=== PATIENT | female | born 1985 | race Caucasian/White ===

== ENCOUNTER 2016-07-12 21:10 | Emergency (ER) | payer OTHER ==
[~2016-07-12] VITALS: Ht 172.7 cm; Wt 83.4 kg
[2016-07-12 21:39] LABS: HEMATOCRIT 40.7 % (36.0-46.0); MCH 28.7 PG (29.0-34.0); MCHC 33.7 G/DL (30.0-36.0); MCV 85.1 FL (83-99); MEAN PLAT.VOLUME 10.4 uM^3 (9.5-12.4); PLATELET COUNT 285 K/uL (156-360); RBC DIS.WIDTH-CV 13.4 % (11.8-14.6); RBC DIS.WIDTH-SD 41.1 % (39-53); RED BLOOD COUNT 4.78 M/uL (3.80-5.20); WHITE BLOOD COUNT 16.6 K/uL (4.1-10.2)
[2016-07-12 21:58] LABS: CHLORIDE 106 mEq/L (99-109); POTASSIUM 3.7 mEq/L (3.7-5.4); SODIUM 138 mEq/L (136-147)
[2016-07-12 22:00] LABS: GLUCOSE 114 mg/dL (70-99)
[2016-07-12 22:01] LABS: ANION GAP 10 MEQ/L (2-14)
[2016-07-12 22:04] LABS: UREA NITROGEN (BUN) 12 mg/dL (9-23)
[2016-07-12 22:05] LABS: GFR ESTIMATE (CALCULATED) > 59 mL/min/; TROP-I INTERPRETATION NEGATIVE; TROPONIN-I < 0.01 ng/mL (0.0-0.30)
[2016-07-13 01:27] LABS: D-DIMER ELISA < 0.15 mg/L FEU (< 0.57)
[2016-07-13 01:48] VITALS: BP 139/80
== END 2016-07-13 01:53 | disposition home or self-care (01) ==
LOC: EME 21:10 → EXP 21:10
DX: R07.9 Chest pain, unspecified (principal); R00.2 Palpitations; R00.0 Tachycardia, unspecified; Z82.49 Family history of ischemic heart disease and other diseases of the circulatory system
CPT/HCPCS: 71020; 80048; 84443; 84484; 85027; 85379; 93005; 99281; 99284

== ENCOUNTER 2017-11-14 23:14 | Emergency (ER) | payer OTHER ==
[~2017-11-14] VITALS: Ht 172.7 cm; Wt 91.4 kg
[2017-11-15 00:06] VITALS: BP 156/97
== END 2017-11-15 00:20 | disposition home or self-care (01) ==
LOC: EME 23:14
DX: L50.9 Urticaria, unspecified (principal)
CPT/HCPCS: 99281; 99284